=== PATIENT | male | born 1980 | race Caucasian/White ===

== ENCOUNTER 2022-04-23 17:46 | Emergency (ER) | payer OTHER ==
[~2022-04-23] VITALS: Ht 170.2 cm; Wt 88.2 kg
[2022-04-23] MEDS ORDERED: DULE100A (21:37)
[2022-04-23] MEDS ORDERED: hydrALAZINE 20MG/ML 1ML VIAL (J0360 PER 20MG) IV ONE (21:40)
[2022-04-23 21:58] VITALS: BP 190/110
[2022-04-23 22:14] LABS: BASO # 0.1 10^3/uL (0.0-0.2); BASO % 0.6 % (0.0-1.0); EOS # 0.1 10^3/uL (0.0-0.5); EOS % 1.6 % (0.0-3.0); HEMATOCRIT 45.7 % (42.0-52.0); HEMOGLOBIN 16.3 g/dl (13.5-17.5); LYMPH # 3.1 10^3/uL (1.5-5.0); LYMPH % 37.2 % (24.0-44.0); MEAN CORPUSCULAR HEMOGLOBIN 29.6 pg (27.0-33.0); MEAN CORPUSCULAR HGB CONC 35.7 g/dl (32.0-36.5); MEAN CORPUSCULAR VOLUME 82.9 fl (80.0-96.0); MONO # 0.5 10^3/uL (0.0-0.8); MONO % 6.5 % (2.0-8.0); NEUTROPHILS # 4.5 10^3/uL (1.5-8.5); NEUTROPHILS % 53.9 % (36.0-66.0); PLATELET COUNT, AUTOMATED 238 10^3/uL (150-450); RED BLOOD COUNT 5.51 10^6/uL (4.30-6.10); WHITE BLOOD COUNT 8.3 10^3/uL (4.0-10.0)
[2022-04-23 23:37] VITALS: BP 138/75
== END 2022-04-23 23:40 | disposition home or self-care (01) ==
LOC: M ED 17:46
DX: S10.81XA Abrasion of other specified part of neck, initial encounter (principal); S40.021A Contusion of right upper arm, initial encounter; S50.01XA Contusion of right elbow, initial encounter; S50.311A Abrasion of right elbow, initial encounter; Y04.8XXA Assault by other bodily force, initial encounter; Y07.04 Female partner, perpetrator of maltreatment and neglect; Y92.018 Other place in single-family (private) house as the place of occurrence of the external cause; I16.0 Hypertensive urgency
CPT/HCPCS: 71046; 80047; 84484; 85025; 93005; 93041; 96374; 99284; J0360

== ENCOUNTER → 2022-05-13 | Outpatient (CLI) | payer OTHER ==
[~2022-05-13] MED LIST: DULE100A
== END ==
LOC: M OUTALCOH 07:54
PROVIDERS: ATTEND Psychiatry & Neurology Psychiatry
DX: Z13.30 Encounter for screening examination for mental health and behavioral disorders, unspecified (principal)

== ENCOUNTER 2022-05-20 14:57 | Outpatient (RCR) | payer OTHER | END 2022-06-03 | LOC: M OUTALCOH 14:57 | PROVIDERS: ATTEND Psychiatry & Neurology Psychiatry | DX: Z72.0 Tobacco use (principal) ==